=== PATIENT | female | born 1965 | race Caucasian/White ===

== ENCOUNTER 2019-04-26 10:52 | Emergency (ER) | payer OTHER ==
[2019-04-26 11:03] VITALS: BP 114/75; PULSE 109; TEMP 98.9; BMI 22.2
[2019-04-26] MEDS ORDERED: SODIUM CHLORIDE 1,000 ML IV STA (12:23)
[2019-04-26] MEDS ORDERED: DICYCLOMINE HCL 20 MG TABLET PO ONE (12:23)
[2019-04-26] MEDS ORDERED: FAMOTIDINE 20 MG/50 ML IVPB 20 MG/50 ML MG IVPB ONE (12:23)
[2019-04-26] MEDS ORDERED: ONDANSETRON 4 MG/2 ML VIAL IVPUSH ONE (12:26)
--- NOTE | 2019-04-26 12:29 | PDOC ---
History of Present Illness - General History Source: Patient Exam Limitations: No Limitations - History of Present Illness Initial Comments: 04/26/19 12:27 Patient is a 53-year-old female who presents to the ED with complaint of nausea , vomiting and diarrhea since yesterday. She states that 3 of her children have similar symptoms and she believes she got an hour. She denies any fevers or chills. She admits to crampy abdominal pain primarily before vomiting or having diarrhea. She denies any blood in her stool or vomitus. She states she has had some any episodes of vomiting and diarrhea that she lost count. She has a history of hypothyroidism. She has no allergies to medications. <Anni Galindo - Last Filed: 04/26/19 15:05> <Kavin Fernando - Last Filed: 04/26/19 16:27> - General Chief Complaint: Vomiting/Diarrhea Stated Complaint: VOMITING/HEADACHE Time Seen by Provider: 04/26/19 12:18 Past History - Past Medical History Anemia: Yes COPD: No Thyroid Disease: Yes (HYPO) - Immunization History Immunization Up to Date: No - Psycho Social/Smoking Cessation Hx Smoking History: Never smoked Have you smoked in the past 12 months: No If you are a former smoker, when did you quit?: 2YRS AGO Information on smoking cessation initiated: No Hx Alcohol Use: No Drug/Substance Use Hx: No Substance Use Type: Alcohol <Anni Galindo - Last Filed: 04/26/19 15:05> <Kavin Fernando - Last Filed: 04/26/19 16:27> - Past Medical History Allergies/Adverse Reactions: Allergies Allergy/AdvReac Type Severity Reaction Status Date / Time No Known Drug Allergies Allergy Verified 06/23/13 07:13 Home Medications: Ambulatory Orders Acetaminophen [Tylenol .Regular Strength -] 650 mg PO Q6H PRN #0 tablet Calcium Carbonate [Calcium] 500 mg PO DAILY #0 tablet 06/28/13 Docusate Sodium [Colace -] 200 mg PO DAILY #0 capsule 06/28/13 Enoxaparin [Lovenox -] 30 mg SQ DAILY@0900 #0 disp.syrin 06/28/13 Folic Acid - 1 mg PO DAILY #0 tablet 06/28/13 Levothyroxine [Synthroid -] 125 mcg PO DAILY #0 tablet 06/28/13 Methotrexate [Mexate -] 15 mg PO Q7D #0 tablet 06/28/13 Ondansetron [Zofran *Odt*] 4 mg SL TID PRN #21 od.tablet 04/26/19 Review of Systems - Review of Systems Comments:: 04/26/19 12:28 - Review of Systems Able to Perform ROS?: Yes Constitutional: No: Fever, Chills, Loss of Appetite, Night Sweats, Weakness HEENTM: No: Eye Pain, Vision changes, Ear Pain, Throat Pain, Throat Swelling, Mouth Pain, Difficulty Swallowing Respiratory: No: Cough, Shortness of Breath, Wheezing, Sputum Production Cardiac (ROS): No: Chest Pain, Chest Tightness, Palpitations, Irregular Heart Beat, Edema ABD/GI: Positive: Nausea, Vomiting, Abdominal Pain, Diarrhea : No Dysuria, No Hematuria, No Frequency, No Urgency Musculoskeletal: No: Muscle Pain, Back Pain, Joint Pain, Muscle Weakness, Neck Pain Integumentary: No: Lesions, Rash Neurological: No: Headache, Numbness, Tingling, Weakness, Speech Difficulties <Anni Galindo D - Last Filed: 04/26/19 15:05> *Physical Exam - Vital Signs Last Vital Signs Temp Pulse Resp BP Pulse Ox 98.9 F 109 H 18 114/75 100 04/26/19 11:00 04/26/19 11:00 04/26/19 11:00 04/26/19 11:00 04/26/19 11:00 - Physical Exam 04/26/19 12:28 - Physical Exam General Appearance: Nourished, Appropriately Dressed, No Distress HEENT: EOMI, slightly dry oral mucosa Neck: Supple, No Lymphadenopathy (R), No Lymphadenopathy (L), No Rigidity, No Decreased range of motion Respiratory/Chest: Lungs Clear, Normal Breath Sounds. No Respiratory Distress, No Accessory Muscle Use Cardiovascular: Regular Rhythm, Regular Rate, S1, S2 Gastrointestinal/Abdominal: Normal Bowel Sounds, Soft. Non-tender, No Guarding , No Rebound, No Rigidity; no reproducible abdominal tenderness to palpation. Musculoskeletal: Normal Inspection. No Decreased Range of Motion Extremity: Normal Capillary Refill, Normal Inspection Integumentary: Normal Color, Dry. No Rash Neurologic: software firmware engineer II-XII NML intact, Fully Oriented, Alert, Normal Mood/Affect, Normal Response <Anni Galindo D - Last Filed: 04/26/19 15:05> - Vital Signs Last Vital Signs Temp Pulse Resp BP Pulse Ox 98.9 F 109 H 18 114/75 100 04/26/19 11:00 04/26/19 11:00 04/26/19 11:00 04/26/19 11:00 04/26/19 11:00 <Kavin Fernando - Last Filed: 04/26/19 16:27> ED Treatment Course - LABORATORY CBC & Chemistry Diagram: 04/26/19 12:35 04/26/19 12:35 <Anni Galindo D - Last Filed: 04/26/19 15:05> - LABORATORY CBC & Chemistry Diagram: 04/26/19 12:35 04/26/19 12:35 - ADDITIONAL ORDERS Additional order review: Laboratory Results 04/26/19 12:35 Sodium 139 Potassium 3.9 Chloride 107 Carbon Dioxide 27 Anion Gap 6 L BUN 16.3 Creatinine 0.7 Est GFR (CKD-EPI)AfAm 113.05 Est GFR (CKD-EPI)NonAf 97.54 Random Glucose 99 Calcium 9.5 Total Bilirubin 0.6 AST 32 ALT 41 Alkaline Phosphatase 104 Total Protein 7.9 Albumin 4.1 Lipase 103 04/26/19 12:35 RBC 5.18 MCV 82.9 MCHC 32.0 RDW 17.5 H MPV 8.6 Neutrophils % 87.5 H Lymphocytes % 6.4 L Monocytes % 5.7 Eosinophils % 0.1 Basophils % 0.3 - Medications Given in the ED: ED Medications Discontinued Medications Generic Name Dose Route Start Last Admin Trade Name Mariola PRN Reason Stop Dose Admin Dicyclomine HCl 20 mg 04/26/19 12:23 04/26/19 12:52 Bentyl - PO 04/26/19 12:24 20 mg ONCE ONE Administration Famotidine/Sodium Chloride 20 mg in 50 mls @ 100 mls/hr 04/26/19 12:23 12:52 Pepcid 20 Mg Premixed Ivpb - IVPB 04/26/19 12:52 100 mls/hr ONCE ONE Administration Sodium Chloride 1,000 mls @ 2,000 mls/hr 04/26/19 12:23 04/26/19 12:52 Normal Saline - IV 04/26/19 12:52 2,000 mls/hr ASDIR STA Administration Ondansetron HCl 4 mg 04/26/19 12:26 04/26/19 12:52 Zofran Injection IVPUSH 04/26/19 12:27 4 mg ONCE ONE Administration <Kavin Fernando - Last Filed: 04/26/19 16:27> Medical Decision Making - Medical Decision Making 04/26/19 12:29 Assessment: Patient is a 53-year-old female with vomiting and diarrhea since yesterday. She has crampy abdominal pain. Her symptoms are likely secondary to a gastroenteritis. Plan: -Labs ordered -2 L of NS ordered -Pepcid, Zofran and Bentyl ordered -Will reassess 04/26/19 14:41 Patient's labs are all stable. We will try p.o. challenge while in the ED and reassess. 04/26/19 15:06 Patient tolerated the p.o. challenge and states she is feeling much better. We will discharge patient with Zofran and have her follow-up with her primary doctor within 1 to 2 days for repeat evaluation. She has been advised to eat a bland diet and drink plenty of fluids. She understands and agrees with this treatment plan and she is stable for discharge. <Anni Galindo - Last Filed: 04/26/19 15:05> - Medical Decision Making 04/26/19 16:27 I reviewed the case of the mid-level practitioner and was available for consultation while in the emergency department <Kavin Fernando - Last Filed: 04/26/19 16:27> Discharge - Discharge Information Problems reviewed: Yes <Anni Galindo - Last Filed: 04/26/19 15:05> <Kavin Fernando - Last Filed: 04/26/19 16:27> - Discharge Information Clinical Impression/Diagnosis: Gastroenteritis Condition: Stable Disposition: HOME - Additional Discharge Information Prescriptions: Ondansetron [Zofran *Odt*] 4 mg SL TID PRN #21 od.tablet PRN Reason: Nausea - Follow up/Referral Referrals: Ye Price MD [Primary Care Provider] - 3 days - Patient Discharge Instructions Patient Printed Discharge Instructions: DI for Viral Gastroenteritis -- Adult Additional Instructions: Get plenty of rest and drink plenty of fluids. Eat a bland diet next several days. Use the Zofran as needed for severe nausea or vomiting. Follow-up with your primary doctor within 1 to 2 days for repeat evaluation. - Post Discharge Activity Work/Back to School Note: Back to Work
[2019-04-26] MEDS ORDERED: DICYCLOMINE HCL 10 MG CAPSULE ONE (12:39)
[2019-04-26] MEDS ORDERED: ONDANSETRON 4 MG/2 ML VIAL ONE (12:39)
[2019-04-26 13:01] LABS: BASO % 0.3 % (0-2.0); EOS % 0.1 % (0-4.5); HEMOGLOBIN 13.7 GM/dL (10.7-15.3); LYMPH % 6.4 % (8-40); MCH 26.5 pg (25.7-33.7); MEAN CELL VOLUME 82.9 fl (80-96); MEAN PLT VOLUME 8.6 fl (7.5-11.1); MONO % 5.7 % (3.8-10.2); NEUT % 87.5 % (42.8-82.8); PLATELET COUNT 319 K/MM3 (134-434); RBC 5.18 M/mm3 (3.60-5.2); RDW 17.5 % (11.6-15.6); WHITE BLOOD COUNT 5.7 K/mm3 (4.0-10.0)
[2019-04-26 13:42] LABS: ALBUMIN 4.1 g/dl (3.4-5.0); BILIRUBIN,TOTAL 0.6 mg/dL (0.2-1); BLOOD UREA NITROGEN 16.3 mg/dL (7-18); CALCIUM 9.5 mg/dL (8.5-10.1); CREATININE 0.7 mg/dL (0.55-1.3); POTASSIUM 3.9 mmol/L (3.5-5.1); TOT PROT 7.9 g/dl (6.4-8.2)
== END 2019-04-26 16:01 | disposition home or self-care (01) ==
LOC: JER 10:52
PROC: 3E033GC Introduction of Other Therapeutic Substance into Peripheral Vein, Percutaneous Approach (ICD-10-PCS; principal; 2019-04-26)
PROC: 3E033GC Introduction of Other Therapeutic Substance into Peripheral Vein, Percutaneous Approach (ICD-10-PCS; 2019-04-26)
DX: K52.9 Noninfective gastroenteritis and colitis, unspecified (principal); E03.9 Hypothyroidism, unspecified
CPT/HCPCS: 36415; 80053; 83690; 85025; 96365; 96375; 99284-25; J7030